=== PATIENT | male | born 1935 | race Caucasian/White ===

== ENCOUNTER 2016-09-21 19:32 | Emergency (ER) | payer MEDICARE, OTHER ==
[~2016-09-21] VITALS: Ht 177.8 cm; Wt 68.0 kg
[~2016-09-21 19:32] MED LIST: AML5T PO; ASPI325T4 PO; ASPI325T47 PO; GLIP-115 PO; LOS50T GT; LOS50T PO; METF-489 PO; METF-490 PO; SIMV-8 PO; SIMV10TA73 PO; TAMS0.4C36 PO
[2016-09-21 20:16] VITALS: BP 145/88
[2016-09-21 20:32] LABS: Basophils # (auto) 0 uL; Basophils % (auto) 0.2 % (0.0-2.0); Eosinophils # (auto) 0.3 uL; Eosinophils % (auto) 3.7 % (0.0-7.0); Hematocrit 30.4 % (41.0-53.0); Lymphocytes # (auto) 0.5 uL; Mean Corpuscular Hemoglobin 31.5 pg (28.0-32.0); Mean Corpuscular Hgb Conc. 33.1 g/dL (32.0-36.0); Mean Corpuscular Volume 95.3 fL (80.0-100.0); Mean Platelet Volume 8.5 fL (7.4-10.4); Monocytes # (auto) 0.9 uL; Monocytes % (auto) 11.9 % (0.0-12.0); Neutrophils # (auto) 5.8 uL; Neutrophils % (auto) 77.2 % (37.0-80.0); Platelet Count (auto) 179 10^3/uL (140-450); Red Cell Distribution Width 16.3 % (11.6-16.0); White Blood Cell 7.5 10^3/uL (4.4-10.8)
[2016-09-21 20:41] LABS: Urine Bilirubin Negative (Negative); Urine Blood TRACE /uL (Negative); Urine Color Yellow (Yellow); Urine Glucose TRACE mg/dL (Normal); Urine Ketone Negative (Negative); Urine Mucus FEW (None Seen); Urine Nitrite Negative (Negative); Urine RBC 4 /hpf (0 - 3); Urine Squamous Epithelial Cell FEW /hpf (<5); Urine Urobilinogen Normal (Negative)
[2016-09-21 21:01] LABS: Albumin 3.3 g/dL (3.4-5.0); BUN/Creatinine Ratio 23.9; Calcium 8.2 mg/dL (8.5-10.1)
[2016-09-21 21:04] LABS: Bilirubin, Total 0.4 mg/dL (0.2-1.0); Total Protein 6.5 g/dL (6.4-8.2)
== END 2016-09-21 21:25 | disposition left against medical advice (07) ==
LOC: EDBD 19:32 → ER 19:38
DX: E11.649 Type 2 diabetes mellitus with hypoglycemia without coma (principal); I25.10 Atherosclerotic heart disease of native coronary artery without angina pectoris; E78.5 Hyperlipidemia, unspecified; I10 Essential (primary) hypertension; Z88.6 Allergy status to analgesic agent; Z79.82 Long term (current) use of aspirin; Z79.899 Other long term (current) drug therapy; Z87.891 Personal history of nicotine dependence
CPT/HCPCS: 36415; 80053; 81001; 82962; 85025; 94761

== ENCOUNTER 2017-05-26 07:50 | Inpatient (IN) | payer MEDICARE, OTHER ==
[~2017-05-26] VITALS: Ht 185.4 cm; Wt 80.0 kg
[2017-05-26 08:58] LABS: Hematocrit 33.6 % (41.0-53.0); Hemoglobin 10.7 g/dL (13.5-17.5); Mean Corpuscular Hemoglobin 27.2 pg (28.0-32.0); Mean Corpuscular Hgb Conc. 31.9 g/dL (32.0-36.0); Mean Corpuscular Volume 85.3 fL (80.0-100.0); Platelet Count (auto) 153 10^3/uL (140-450); Red Blood Cells 3.95 10^6/uL (4.5-5.90); White Blood Cell 5.3 10^3/uL (4.4-10.8)
[2017-05-26 08:59] LABS: Red Cell Distribution Width 20.6 % (11.8-14.3)
[2017-05-26 09:02] LABS: Band Neutrophils % (manual) 0
[2017-05-26 09:03] LABS: Basophils % (manual) 0 (0.0-2.0); Blast Cells 0; Metamyelocytes % 0; Myelocytes % 0; Promyelocytes % 0; Reactive Lymphocytes 0
[2017-05-26 09:17] LABS: Albumin 3.1 g/dL (3.4-5.0); BUN/Creatinine Ratio 21.1; Calcium 8.6 mg/dL (8.5-10.1); Magnesium 1.8 mg/dL (1.6-2.6); Potassium 3.4 mmol/L (3.5-5.1)
[2017-05-26 09:22] LABS: Bilirubin, Total 0.8 mg/dL (0.2-1.0); Total Protein 6.3 g/dL (6.4-8.2)
[2017-05-26 09:56] LABS: Eosinophils % (manual) 1 (0-7); Lymphocytes % (manual) 7 (10.0-50.0); Monocytes % (manual) 21 (0-12)
[2017-05-26] MEDS ORDERED: POTASSIUM CHL 10% (20 MEQ/15ML) 15ml ORAL SOLN PO ONE (10:00)
[2017-05-26] MEDS ORDERED: SPIRONOLACTONE 25 MG TAB PO ONE (11:00)
[2017-05-26] MEDS ORDERED: FUROSEMIDE 40 MG/4 ML VIAL IV ONE (11:00)
[2017-05-26] MEDS ORDERED: cefTRIAXone 1GM/10ml IVPUSH 10 ML IV ONE (11:00)
[2017-05-26] MEDS ORDERED: NITROGLYCERIN 0.4 MG SL TAB SL PRN (14:15)
[2017-05-26] MEDS ORDERED: DEXTROSE (50%) 50ML SYRG IV PRN (14:15)
[2017-05-26] MEDS ORDERED: ACETAMINOPHEN 500 MG TAB PO PRN (14:15)
[2017-05-26] MEDS ORDERED: OSELTAMIVIR 75 MG CAP PO ONE (14:15)
[2017-05-26] MEDS ORDERED: LACTULOSE 20Gm/30ML SOLN PO PRN (14:15)
[2017-05-26] MEDS ORDERED: HYDROcodone-ACET 5/325MG TAB PO PRN (14:15)
[2017-05-26] MEDS ORDERED: ALBUTEROL SULF 2.5 MG/0.5ML(0.5%) NEB SOLN NEB PRN (14:15)
[2017-05-26] MEDS ORDERED: MORPHINE SULFATE 4 MG/ML SYR/VIAL IV PRN ×2 (14:15)
[2017-05-26] MEDS ORDERED: TEMAZEPAM 15 MG CAP PO PRN (14:15)
[2017-05-26] MEDS ORDERED: PROMETHAZINE HCL 25 MG/ML 1ML IV PRN (14:15)
[2017-05-26] MEDS ORDERED: LORazepam 0.5 MG TAB PO PRN (14:15)
[2017-05-26] MEDS: AZITHROMYCIN 500MG/ 250ML 250 ML IV SCH (14:23)
[2017-05-26] MEDS ORDERED: ASPirin 325 MG TAB PO ONE (14:45)
[2017-05-26] MEDS ORDERED: LOSARTAN POTASSIUM 50 MG TAB GT ONE (14:45)
[2017-05-26] MEDS ORDERED: ENOXAPARIN SOD 40 MG/0.4 ML SYRINGE SC ONE (14:45)
[2017-05-26] MEDS ORDERED: PANTOPRAZOLE 40 MG TAB PO ONE (14:45)
[2017-05-26] MEDS ORDERED: amLODIPine BESYLATE 5 MG TAB PO ONE (14:45)
[2017-05-26] MEDS ORDERED: CARVEDILOL 3.125 MG TAB PO ONE (14:45)
[2017-05-26] MEDS ORDERED: PIPERACILLIN-TAZOB 3.375GM 50 ML IV ONE (15:15)
[2017-05-26] MEDS ORDERED: VANCOMYCIN 1GM/250ML 250 ML IV ONE (15:15)
[2017-05-26] MEDS ORDERED: LOSARTAN POTASSIUM 50 MG TAB PO ONE (15:15)
[2017-05-26] MEDS ORDERED: VANCOMYCIN PER PHARMACY 0 MG IV SCH (15:15)
[2017-05-26 15:33] VITALS: BP 148/91
[2017-05-26 16:00] VITALS: BP 156/99
[2017-05-26] MEDS: VANCOMYCIN 1GM/250ML 250 ML IV SCH (17:35)
[2017-05-26] MEDS: InsuLIN REG 1unit/0.01ml Soln (100units/ml) SC SCH ×2 (17:36→21:57)
[2017-05-26] MEDS: ACCU-CHEK COMFORT CURVE STRIP VI SCH ×2 (17:36→21:57)
[2017-05-26] MEDS: IPRATROPIUM BROM 0.5 MG/2.5ML INH SOL NEB SCH ×2 (19:38→23:22)
[2017-05-26] MEDS: ALBUTEROL SULF 2.5 MG/0.5ML(0.5%) NEB SOLN NEB SCH ×2 (19:38→23:22)
[2017-05-26 19:42] VITALS: BP 159/156
[2017-05-26] MEDS: ATORVASTATIN 20 MG TAB PO SCH (21:39)
[2017-05-26] MEDS: CARVEDILOL 3.125 MG TAB PO SCH (21:39)
[2017-05-26] MEDS: TAMSULOSIN HYDROCHLORIDE 0.4 MG CAP PO SCH (21:39)
[2017-05-26] MEDS: LOSARTAN POTASSIUM 50 MG TAB PO SCH (21:40)
[2017-05-26] MEDS: PIPERACILLIN-TAZOB 3.375GM 50 ML IV SCH (21:41)
[2017-05-26 22:00] VITALS: BP 146/75
[2017-05-26] MEDS ORDERED: LOSARTAN POTASSIUM 50 MG TAB GT SCH (22:00)
[2017-05-26] MEDS ORDERED: OSELTAMIVIR 30 MG CAP PO SCH (22:00)
[2017-05-26] MEDS ORDERED: PATIENTS OWN MEDICATION (Simvastatin 20 MG) PO SCH (22:00)
[2017-05-27] MEDS: PIPERACILLIN-TAZOB 3.375GM 50 ML IV SCH ×4 (03:27→21:00)
[2017-05-27 05:00] VITALS: BP 110/74
[2017-05-27] MEDS: ALBUTEROL SULF 2.5 MG/0.5ML(0.5%) NEB SOLN NEB SCH ×3 (06:52→19:55)
[2017-05-27] MEDS: IPRATROPIUM BROM 0.5 MG/2.5ML INH SOL NEB SCH ×3 (06:52→19:55)
[2017-05-27] MEDS: InsuLIN REG 1unit/0.01ml Soln (100units/ml) SC SCH ×4 (07:00→22:00)
[2017-05-27] MEDS: ACCU-CHEK COMFORT CURVE STRIP VI SCH ×4 (07:10→22:23)
[2017-05-27 07:50] LABS: Mean Corpuscular Volume 84.9 fL (80.0-100.0)
[2017-05-27 07:52] LABS: Hematocrit 34.2 % (41.0-53.0); Hemoglobin 10.8 g/dL (13.5-17.5); Mean Corpuscular Hgb Conc. 31.8 g/dL (32.0-36.0); Platelet Count (auto) 140 10^3/uL (140-450); Red Blood Cells 4.02 10^6/uL (4.5-5.90)
[2017-05-27 08:00] LABS: Red Cell Distribution Width 20.7 % (11.8-14.3)
[2017-05-27 08:01] LABS: Band Neutrophils % (manual) 0; Basophils % (manual) 0 (0.0-2.0); Metamyelocytes % 0; Myelocytes % 0; Promyelocytes % 0
[2017-05-27 08:02] LABS: Blast Cells 0; Reactive Lymphocytes 0
[2017-05-27] MEDS ORDERED: cefTRIAXone 1GM/10ml IVPUSH 10 ML IV SCH (09:00)
[2017-05-27 09:22] LABS: Eosinophils % (manual) 7 (0-7); Lymphocytes % (manual) 12 (10.0-50.0); Monocytes % (manual) 17 (0-12)
[2017-05-27 09:40] VITALS: BP 112/78
[2017-05-27] MEDS ORDERED: LOSARTAN POTASSIUM 50 MG TAB PO SCH (10:00)
[2017-05-27] MEDS: NITROGLYCERIN 0.2MG/HR TOPICAL PATCH TD SCH ×2 (10:00→10:19)
[2017-05-27] MEDS: ENOXAPARIN SOD 40 MG/0.4 ML SYRINGE SC SCH (10:13)
[2017-05-27] MEDS: PANTOPRAZOLE 40 MG TAB PO SCH (10:13)
[2017-05-27] MEDS: POTASSIUM CHL 20 Meq TABLET PO SCH (10:13)
[2017-05-27] MEDS: ASPirin 325 MG TAB PO SCH (10:13)
[2017-05-27] MEDS: AZITHROMYCIN 500MG/ 250ML 250 ML IV SCH (10:14)
[2017-05-27] MEDS: LOSARTAN POTASSIUM 50 MG TAB PO SCH ×2 (10:17→22:00)
[2017-05-27] MEDS: amLODIPine BESYLATE 5 MG TAB PO SCH (10:17)
[2017-05-27] MEDS: CARVEDILOL 3.125 MG TAB PO SCH ×2 (10:18→22:00)
[2017-05-27] MEDS: FUROSEMIDE 40 MG/4 ML VIAL IV SCH (10:18)
[2017-05-27] MEDS: VANCOMYCIN 1GM/250ML 250 ML IV SCH (11:00)
[2017-05-27 12:16] VITALS: BP 148/85
[2017-05-27 14:08] LABS: Albumin 3.1 g/dL (3.4-5.0); Calcium 8.3 mg/dL (8.5-10.1); Potassium 3.5 mmol/L (3.5-5.1)
[2017-05-27 14:19] LABS: BUN/Creatinine Ratio 22.9; Bilirubin, Total 0.8 mg/dL (0.2-1.0); Total Protein 6.1 g/dL (6.4-8.2)
[2017-05-27 16:43] VITALS: BP 126/72
[2017-05-27 21:49] VITALS: BP 143/74
[2017-05-27] MEDS: ATORVASTATIN 20 MG TAB PO SCH (22:00)
[2017-05-27] MEDS: TAMSULOSIN HYDROCHLORIDE 0.4 MG CAP PO SCH (22:00)
[2017-05-28] MEDS: PIPERACILLIN-TAZOB 3.375GM 50 ML IV SCH ×2 (03:00→09:00)
[2017-05-28] MEDS: VANCOMYCIN 1GM/250ML 250 ML IV SCH (05:00)
[2017-05-28] MEDS: IPRATROPIUM BROM 0.5 MG/2.5ML INH SOL NEB SCH ×2 (06:20)
[2017-05-28] MEDS: ALBUTEROL SULF 2.5 MG/0.5ML(0.5%) NEB SOLN NEB SCH ×2 (06:20)
[2017-05-28 06:44] LABS: Hematocrit 31.2 % (41.0-53.0); Mean Corpuscular Hemoglobin 27.2 pg (28.0-32.0); Mean Corpuscular Volume 84.9 fL (80.0-100.0); Platelet Count (auto) 134 10^3/uL (140-450); Red Blood Cells 3.68 10^6/uL (4.5-5.90); White Blood Cell 4.9 10^3/uL (4.4-10.8)
[2017-05-28] MEDS: InsuLIN REG 1unit/0.01ml Soln (100units/ml) SC SCH (06:52)
[2017-05-28] MEDS: ACCU-CHEK COMFORT CURVE STRIP VI SCH (06:52)
[2017-05-28 06:54] LABS: Potassium 3.7 mmol/L (3.5-5.1)
[2017-05-28 07:00] LABS: BUN/Creatinine Ratio 19.4; Calcium 8.7 mg/dL (8.5-10.1); Magnesium 2.2 mg/dL (1.6-2.6)
[2017-05-28 07:13] LABS: Red Cell Distribution Width 20.5 % (11.8-14.3)
[2017-05-28 07:14] LABS: Band Neutrophils % (manual) 0; Basophils % (manual) 0 (0.0-2.0); Blast Cells 0; Metamyelocytes % 0; Myelocytes % 0; Promyelocytes % 0; Reactive Lymphocytes 0
[2017-05-28 09:23] VITALS: BP 133/72
[2017-05-28] MEDS: ASPirin 325 MG TAB PO SCH (09:53)
[2017-05-28] MEDS: PANTOPRAZOLE 40 MG TAB PO SCH (09:53)
[2017-05-28] MEDS: POTASSIUM CHL 20 Meq TABLET PO SCH (09:53)
[2017-05-28] MEDS: amLODIPine BESYLATE 5 MG TAB PO SCH (09:54)
[2017-05-28] MEDS: LOSARTAN POTASSIUM 50 MG TAB PO SCH (09:55)
[2017-05-28] MEDS: CARVEDILOL 3.125 MG TAB PO SCH (09:55)
[2017-05-28] MEDS: FUROSEMIDE 40 MG/4 ML VIAL IV SCH (10:00)
[2017-05-28] MEDS: ENOXAPARIN SOD 40 MG/0.4 ML SYRINGE SC SCH (10:00)
[2017-05-28] MEDS: AZITHROMYCIN 500MG/ 250ML 250 ML IV SCH (10:00)
[2017-05-28] MEDS: NITROGLYCERIN 0.2MG/HR TOPICAL PATCH TD SCH (10:00)
[2017-05-28] MEDS ORDERED: POTA1TAB64 PO (10:44)
[2017-05-28] MEDS ORDERED: CAR3125T PO (10:44)
[2017-05-28] MEDS ORDERED: FURO20TA PO (10:44)
[2017-05-28 11:26] VITALS: BP 133/72
[2017-05-28 13:40] LABS: Eosinophils % (manual) 3 (0-7); Lymphocytes % (manual) 11 (10.0-50.0); Monocytes % (manual) 24 (0-12)
== END 2017-05-28 19:30 | disposition home or self-care (01) | DRG 291 ==
LOC: EDBD 07:50 → ER 07:50 → TELE 07:51 → TELE-WESTW 15:55
PROVIDERS: ADMIT Internal Medicine; ATTEND Internal Medicine
DX: I13.0 Hypertensive heart and chronic kidney disease with heart failure and stage 1 through stage 4 chronic kidney disease, or unspecified chronic kidney disease (principal); I50.23 Acute on chronic systolic (congestive) heart failure; C16.9 Malignant neoplasm of stomach, unspecified; C43.71 Malignant melanoma of right lower limb, including hip; E11.22 Type 2 diabetes mellitus with diabetic chronic kidney disease; E44.1 Mild protein-calorie malnutrition; E11.65 Type 2 diabetes mellitus with hyperglycemia; D64.9 Anemia, unspecified; I48.91 Unspecified atrial fibrillation; N18.3 Chronic kidney disease, stage 3 (moderate); C43.72 Malignant melanoma of left lower limb, including hip; C43.9 Malignant melanoma of skin, unspecified; I50.9 Heart failure, unspecified; E87.6 Hypokalemia; E78.5 Hyperlipidemia, unspecified; K59.00 Constipation, unspecified; R74.8 Abnormal levels of other serum enzymes; F41.9 Anxiety disorder, unspecified; G47.00 Insomnia, unspecified; I25.10 Atherosclerotic heart disease of native coronary artery without angina pectoris; R09.02 Hypoxemia; Z82.3 Family history of stroke; Z82.49 Family history of ischemic heart disease and other diseases of the circulatory system; Z91.19 Patient's noncompliance with other medical treatment and regimen; Z95.1 Presence of aortocoronary bypass graft; Z68.23 Body mass index [BMI] 23.0-23.9, adult; Z92.21 Personal history of antineoplastic chemotherapy; Z88.5 Allergy status to narcotic agent; Z79.82 Long term (current) use of aspirin; Z79.899 Other long term (current) drug therapy
CPT/HCPCS: 36415; 36600; 71045; 80048; 80053; 80061; 82550; 82805; 82962; 83036; 83735; 83880; 84443; 84484; 85007; 85027; 85379; 86141; 87040; 87804; 93005; 93306; 94640; 96372; 96374; 96375; G9035; J1815; J2543

== ENCOUNTER 2017-08-10 16:34 | Emergency (ER) | payer MEDICARE, OTHER ==
[~2017-08-10] VITALS: Ht 180.3 cm; Wt 81.6 kg
[~2017-08-10 16:34] MED LIST changes: -ASPI325T47 PO; +CAR3125T PO; +FURO20TA PO; -LOS50T PO; -METF-489 PO; +POTA1TAB64 PO; -SIMV10TA73 PO
[2017-08-10 16:45] VITALS: BP 152/84
[2017-08-10] MEDS ORDERED: BACITRACIN TOP OINT 1 UD PKG TOP ONE (17:45)
[2017-08-10] MEDS ORDERED: LIDOCAINE 1% (LOCAL ANESTH.) PF 5ml SDV ID ONE (17:45)
== END 2017-08-10 18:43 | disposition home or self-care (01) ==
LOC: EDBD 16:34 → ER 16:34
DX: S51.812A Laceration without foreign body of left forearm, initial encounter (principal); I48.91 Unspecified atrial fibrillation; I25.10 Atherosclerotic heart disease of native coronary artery without angina pectoris; E11.9 Type 2 diabetes mellitus without complications; E78.5 Hyperlipidemia, unspecified; I10 Essential (primary) hypertension; Z87.891 Personal history of nicotine dependence; Z88.6 Allergy status to analgesic agent; W01.0XXA Fall on same level from slipping, tripping and stumbling without subsequent striking against object, initial encounter; Y93.89 Activity, other specified; Y92.89 Other specified places as the place of occurrence of the external cause; Y99.8 Other external cause status
CPT/HCPCS: 12005; 73090